=== PATIENT | female | born 1940 | race Caucasian/White ===

== ENCOUNTER 2017-05-30 20:30 | Observation (INO) | payer MEDICARE, OTHER ==
[~2017-05-30] VITALS: Ht 165.1 cm; Wt 72.0 kg
--- NOTE | ~2017-05-30 | DS ---
PATIENT'S NAME: MARINA ALDRIDGE [facility] AGE: 76 Y [address] ROOM: [id number] [place], [place] [address] LOCATION: G3N ADMIT DATE: 05/30/2017 Discharge Summary DISCHARGE DATE: 06/03/2017 FAMILY PHYSICIAN: Yaneth Feldman MD ATTENDING PHYSICIAN: Balwinder Plunkett DISCHARGE DIAGNOSES: 1. Left pubic rami pelvic fracture. 2. Syncope. 3. Adult failure to thrive. 4. Essential hypertension. 5. Coronary artery disease. 6. Elevated pancreatic enzymes, resolved. 7. Depression. 8. Chronic renal impairment. HOSPITAL COURSE: Please refer to admitting history and physical as dictated by Dr. Pérez. Briefly, the patient was admitted to [facility], where she was found to have a left pubic rami fracture. Dr. Bob was consulted and did see the patient. He felt as though the hip was in good position as she could mobilize as tolerated and try to avoid falls in the future. No surgical intervention was needed. Serum protein electrophoresis was ordered and is currently pending at the time of discharge. Tylenol and [place] were used for pain control, which did seem to control the pain. She was noted to have elevated pancreatic enzymes at an outside facility. However, lipase was normal. She had no clinical evidence of pancreatitis. She was continued on her aspirin and statin for coronary artery disease. Due to her adult failure to thrive, SPEP was ordered, currently pending. There was a suspicion that her psychosocial issues also played a part. She had recently been started on Lexapro. We will continue Lexapro and it can be titrated as needed by her primary care physician. Due to the patient's history of syncope, MRI was performed of the brain which showed mild periventricular small vessel ischemic changes without evidence of acute cortical ischemia or hemorrhage. She was monitored on telemetry, which was stable throughout her stay. Her blood pressure systolically did run 100s to 140s with a pulse 50s to 70s primarily. We did go ahead and stop her Bystolic and lisinopril. We will continue her Norvasc 2.5 mg at bedtime. She should check her blood pressures twice daily and take those to primary care followup. Physical Therapy and Occupational Therapy were consulted. It was recommended that she continue use of her walker and fall precautions. Home healthcare, senior care, PT, and OT will follow when discharged. On the day of discharge, the patient was up ambulatory with a walker. Her vital signs were stable. Pain was controlled with [place]. It was felt as though she was safe to be discharged with her daughter and home healthcare. PATIENT'S NAME: MARINA ALDRIDGE [facility] AGE: 76 Y [address] ROOM: [place] [address] LOCATION: [facility] ADMIT DATE: 05/30/2017 Discharge Summary DISCHARGE DATE: 06/03/2017 FAMILY PHYSICIAN: Yaneth Feldman MD ATTENDING PHYSICIAN: Balwinder Plunkett LABORATORY DATA: Sodium 133 on admit, 135 prior to discharge; potassium 3.9- 4.4; fasting glucose 97; BUN 20 on admit, 26 prior to discharge; creatinine 1.1 on admit, 1.0 prior to discharge; albumin 3.2; alkaline phosphatase 103; AST 14; ALT 18; phos 3.9; GFR 50 on admit, 56 prior to discharge; lipase 391; CPK 40; CK-MB 0.7. Troponin less than 0.040. ProBNP 158. CRP less than 0.29. Vitamin B12, 295. TSH 3.280. WBC 7.7, hemoglobin 11.1, hematocrit 33.8, platelets 252. Serum protein electrophoresis, currently pending. ESR 18. Vitamin D level pending. RADIOLOGY REPORTS: MRI of the brain: Please refer to hospital course. DISCHARGE INSTRUCTIONS: The patient will be discharged to home with family. Diet: As tolerated. Activity: As tolerated with walker. Followup: Followup appointment with Dr. Feldman with CBC and BMP in 3 days. Check blood pressures twice daily. Call MD if systolic blood pressure is less than 100 or greater than 180. Record blood pressures and take to physician appointment. No driving until cleared by MD. DISCHARGE MEDICATIONS: 1. Norvasc 2.5 mg p.o. daily at h.s. 2. Aspirin 81 mg p.o. daily. 3. Lipitor 40 mg p.o. q.h.s. 4. Vitamin D3, 2000 units p.o. daily. 5. Ocuvite 1 tablet p.o. daily. 6. Colace 100 mg p.o. twice daily. 7. Lexapro 10 mg p.o. daily. 8. Feosol 325 mg p.o. daily. 9. Protonix 40 mg p.o. daily. 10. Restoril 15 mg p.o. q.h.s. 11. Tylenol 1000 mg p.o. every 8 hours as needed for pain. Tylenol dose should not exceed 4000 mg per day. 12. Mag oxide 400 mg p.o. twice daily. 13. MiraLAX 17 g p.o. daily p.r.n. constipation. 14. Bangor 5/325 one tablet p.o. q.4 hours as needed for pain. Thank you for allowing us to participate in the care of this patient as she has been hospitalized at [facility]. PATIENT'S NAME: [facility] AGE: 76 Y [address] ROOM: [place] [address] LOCATION: [facility] ADMIT DATE: 05/30/2017 Discharge Summary DISCHARGE DATE: 06/03/2017 FAMILY PHYSICIAN: Yaneth Feldman MD ATTENDING PHYSICIAN: Balwinder Plunkett SWETA TRUJILLO APRN FOR MD JENNIFER BROWN/adamal /[id number] d: 06/04/17 0144 t: 06/09/17 1617, DISCHARGE SUMMARY
--- NOTE | ~2017-05-30 | CON ---
PATIENT'S NAME: MARINA ALDRIDGE [facility] AGE: 76 Y [address] ROOM: [address] [address] LOCATION: [facility] ADMIT DATE: 05/30/2017 Consultation DISCHARGE DATE: FAMILY PHYSICIAN: Yaneth Feldman MD ATTENDING PHYSICIAN: STEFANIA ALLEN DATE OF CONSULTATION: 05/31/2017 TIME: 2 p.m. HISTORY OF PRESENT ILLNESS: Ms. Aldridge is a 76-year-old white female 10 days status post a trip and fall at home. She landed on her left knee. Initially, was evaluated at the [facility]. Had x-rays of her pelvis and her knee which showed no fracture. Had a CT scan of her pelvis and chest in which she had left-sided rib fractures. She has had persisting left hip pain which is improving. CT scan yesterday in [place] demonstrated a pelvic fracture about her left total hip. Also is being treated and worked up for possible pancreatitis. She was transferred to [facility] for evaluation and treatment. She reports that her left total hip was done by Dr. Estrella in [place] in 2014. Overall, has done well. Had no infections or complications after surgery and had been walking without pain. MEDICATIONS: See list. ALLERGIES: PENICILLIN, KEFZOL, CEFTRIAXONE, CEFUROXIME, AND LEVAQUIN. PAST MEDICAL HISTORY: Osteoporosis, takes vitamin D; coronary artery disease, required stenting. SOCIAL HISTORY: She quit smoking in the past. Does not drink alcohol. No drug abuse. REVIEW OF SYSTEMS: As above. FAMILY MEDICAL HISTORY: Remarkable for coronary artery disease. PERSONAL AND SOCIAL HISTORY: Lives with her in [place]. PATIENT'S NAME: MARINA ALDRIDGE [facility] AGE: 76 Y [address] ROOM: [address] [address] LOCATION: [facility] ADMIT DATE: 05/30/2017 Consultation DISCHARGE DATE: FAMILY PHYSICIAN: Yaneth Feldman MD ATTENDING PHYSICIAN: STEFANIA ALLEN PHYSICAL EXAMINATION: GENERAL: A white female, in no distress. HEENT: Hears and sees. Pharynx clear. NECK: Nontender. BACK: Thoracic spine nontender. Low back nontender. HEART: Pulse rate is regular. LUNGS: Left-sided chest is tender, but able to take in a deep breath. ABDOMEN: Soft and nontender. PELVIC: There is bruising about the left hip. Pelvic ring is stable. Marked tenderness over the left superior pubic rami. No tenderness of the SI joints. No tenderness over either greater trochanter. Can move the hips without pain. NEUROLOGIC: Motor strength 5/5 both lower extremities. Sensation is intact. Nerve tension testing: Bowstring test and straight leg raise negative. VASCULAR: No calf pain. INTEGUMENT: Bruising is noted. Also, at the left knee, there is a scab over the abrasion which is healing without surrounding erythema or purulence. DIAGNOSTIC DATA: X-rays of the left hip from May 22, 2017, shows a total hip in place without apparent fracture. No loosening. Components in good position. X-rays of the pelvis from May 30, 2017: No apparent fracture. Total hip in good position. CT scan from May 30, 2017, at [place], [place]: Well-fixed, well-positioned total hip acetabulum and femoral stem. Probable nondisplaced fracture at the anterior column of the left acetabulum, base of the superior pubic rami. Minimal arthritis of the right hip. Significant degeneration of the L5-S1 disk. ASSESSMENT AND PLAN: The patient with osteoporosis, pathologic nondisplaced fracture of the left pelvis. Hip is in good position. A serum protein electrophoresis is pending. Would mobilize as tolerates. Needs to avoid falls to prevent additional fractures in the future and continue treating her osteoporosis with her family physician. SANJANA ESCALERA MD DPM/adamal /[id number] d: 05/31/179 t: 06/01/17 1218, CONSULTATION REPORT
--- NOTE | ~2017-05-30 | HP ---
PATIENT'S NAME: [facility] AGE: 76 Y [address] ROOM: [place] [address] LOCATION: [facility] ADMIT DATE: 05/30/2017 History & Physical DISCHARGE DATE: FAMILY PHYSICIAN: Yaneth Feldman MD ATTENDING PHYSICIAN: STEFANIA ALLEN DATE OF SERVICE: CHIEF COMPLAINT: Fall. HISTORY OF PRESENT ILLNESS: This 76-year-old lady with a past medical history of hypertension, coronary artery disease with a stent placed in one the coronary vessels 2 years ago, was at home and tripped and had a fall about 1 week ago. She presented to the hospital. Over there, an initial skeletal x-ray was done, which did not reveal any fractures. She was found to . She was discharged from the hospital and today she got a visit from one of the PAs over there, who ordered a CAT scan, which did show pelvic fracture. She was transferred here for further medical care. On my encounter, she is lying in bed, alert and oriented, not complaining of any pain. She said she hurts in her left hip when she walks. She does not complain of any chest pain, any shortness of breath, any headache, any fever, any chills, any trouble swallowing, any burning on urination, or any abdominal pain. REVIEW OF SYSTEMS: All other systems reviewed were negative, except what is mentioned in the HPI. ALLERGIES: THE PATIENT HAS MANY DRUG ALLERGIES INCLUDING PENICILLIN, CEFTRIAXONE, CEFUROXIME, AND LEVAQUIN. PAST MEDICAL HISTORY: Hypertension and coronary artery disease. MEDICATIONS: Being reconciled right now. SOCIAL HISTORY: Quit smoking 3 years ago. FAMILY HISTORY: No significant history of premature coronary artery disease in the family. PHYSICAL EXAMINATION: PATIENT'S NAME: [facility] AGE: 76 Y [address] ROOM: [place] [address] LOCATION: [facility] ADMIT DATE: 05/30/2017 History & Physical DISCHARGE DATE: FAMILY PHYSICIAN: Yaneth Feldman MD ATTENDING PHYSICIAN: STEFANIA ALLEN VITAL SIGNS: 145/68, 53, 16, saturating 95% on room air. GENERAL: No acute distress. Alert and oriented x3. HEENT: Head atraumatic and normocephalic. Eyes: Nonicteric. No pallor. Oropharynx: Moist mucous membranes. CARDIOVASCULAR: S1, S2. No murmurs, gallops, or rubs. LUNGS: Clear to auscultation bilaterally. ABDOMEN: Soft, nontender, and nondistended. Bowel sounds present. EXTREMITIES: No clubbing, cyanosis, or edema. MUSCULOSKELETAL: No tenderness noted in bilateral trochanteric region. ENDOCRINE: No thyromegaly or lymphedema noted. NEUROLOGIC: Cranial nerves 2 through 12 intact. No motor or sensory deficits. SKIN: No blemishes noted. Left pretibial bruise noted. LABORATORY DATA: Lab work pending at this point. CAT scan has been done today, and we will review and obtain the results of the report. ASSESSMENT AND PLAN: 1. Pelvic fracture. 2. Hypertension. 3. Coronary artery disease. We are going to admit this lady for observation and pain control. We will have Orthopedic consultation in the morning. We will review the results of the CAT scan. Lab work will be done; CBC, CMP, and lipase as well. We will obtain the records from the previous hospitalization to trend the lab work. Continue home medications of amlodipine, lisinopril, and aspirin 81. Full code. Fall precautions. SCDs for now, can be oral prophylaxis from tomorrow morning. MD GLADIS BAIG/pancho /[id number] D: [id number] T: [id number] HISTORY & PHYSICAL
--- NOTE | 2017-05-30 23:42 | NUR ---
Patient stated that last week she was walking with her and tripped and fell on a cement slab. She crawled into her house and laid on the couch for a couple of hours. patient stated she waited 3 hours before telling family that she had fallen. A family friend saw her and took her to the [facility] ER. The patient was admitted to the hospital there from last Friday and went home on Friday. Patient also dislocated 2 of her left ribs and stated that she had pancreatitis. Today the patient missed an appointment so Yaneth WILL came and saw her to draw labs that she missed and assessed her and sent her to the hospital to get a CT and it showed a pelvic fracture. They then had her come to [facility] and they came by private car.
[2017-05-30] MEDS ORDERED: FEOSOL325 MG PO (23:54)
[2017-05-30] MEDS ORDERED: COLACE100 MG PO (23:54)
[2017-05-30] MEDS ORDERED: OCUVITE EYE +1 EACH PO (23:58)
[2017-05-30] MEDS ORDERED: ACETAMINOPHEN325 MG PO (23:59)
[2017-05-31] MEDS ORDERED: ASPIRIN LO-DOSE81 MG PO
[2017-05-31] MEDS ORDERED: VITAMIN D-32000 UNI1 PO (00:01)
[2017-05-31] MEDS ORDERED: NORVASC2.5 MG PO (00:02)
[2017-05-31] MEDS ORDERED: PRINIVIL (ZESTR20 MG PO (00:02)
[2017-05-31] MEDS ORDERED: MAG-OX-400(241400 MG PO (00:03)
[2017-05-31 00:05] LABS: BASOPHIL % 0.5 %; EOSINOPHIL # 0.1 K/uL (0.0-0.5); EOSINOPHIL % 0.7 %; HEMATOCRIT 34.8 % (33.0-46.0); HEMOGLOBIN 11.6 g/dL (10.0-15.0); IMMATURE GRANULOCYTE % 0.3 %; LYMPHOCYTE % 22.9 %; MCH 28.1 pg (27.0-34.0); MCHC 33.3 gm/dL (32.0-36.5); MCV 84.3 fl (83.0-98.0); MONOCYTE # 0.9 K/uL (0.0-1.0); MONOCYTE % 10.5 %; MPV 8.9 fl (9.4-12.4); NEUTROPHIL # (ANC) 5.7 K/uL (1.8-7.8); NEUTROPHIL % 65.1 %; NRBC % 0 /100WBC (0-0.00); PLATELET COUNT 243 K/uL (150-450); RBC 4.13 M/uL (3.50-5.50); RDW-CV 13.8 % (11.9-14.6); WBC 8.7 K/uL (4.0-11.0)
[2017-05-31] MEDS ORDERED: REGLAN5 MG PO (00:05)
[2017-05-31] MEDS ORDERED: PROTONIX40 MG PO (00:06)
[2017-05-31] MEDS ORDERED: LIPITOR40 MG PO (00:07)
[2017-05-31 00:21] LABS: ALBUMIN 3.5 gm/dL (3.5-5.0); ANION GAP 11.9 (10.0-19.0); CALCIUM 9.2 mg/dL (8.5-10.5); CREATININE 1.1 mg/dL (0.5-1.1); POTASSIUM 3.9 mMol/L (3.7-5.1); TOTAL BILIRUBIN 0.6 mg/dL (0.0-1.5); TOTAL PROTEIN 6.7 g/dL (6.0-8.4)
[2017-05-31] MEDS ORDERED: RESTORIL15 MG PO (00:45)
--- NOTE | 2017-05-31 03:50 | NUR ---
Significant Event: Admitted at 2300. Refuses pain medication. CSM WNL. 1 assist with transfers. Voids without difficulty. Bradycardia. Scab to L) knee. Patient states she has 2 left dislocated ribs. Follow up:
--- NOTE | 2017-05-31 15:03 | NUR ---
Significant Event: Pt Aox3. VSS, hypotensive this am and BP meds held. I did get parameters placed for her medications. She is alos bradycardic with rates in 50s. Up SBA, walker and gait belt. Moves steadily. [place] given x 1 for pain. Voids without difficulty and had moderate BM. Dr. Bob says WBAT, she has small fracture that would not require surgical intervention. Bruising to left hip. L knee has healing scab. Follow up: Possible discharge home tomorrow.
[2017-05-31 16:02] LABS: CPK 40 IU/L (21-215)
--- NOTE | 2017-06-01 03:29 | NUR ---
Significant Event: A/O X 3. CSM WNL. PATIENT IS A ONE ASSIST WITH TRANSFERS TO BR WITH GAITBELT AND WALKER, VOIDED X 3. STEADY GAIT, PAIN WITH MOVEMENT. HAD RESTORIL 15MG AT HS AND HAD NORCO TAB ONE AT 2243 FOR PAIN PELVIS AREA. SCAB TO LEFT KNEE INTACT-HEALING, SLIGHT REDNESS AROUND AREA. ON TELEMETRY FOR ENDY HR, NO CALLS. PATIENT IS WBAT. BRUISING TO LET HIP. PARAMETERS TO BP'S. Follow up:
[2017-06-01 04:30] LABS: BASOPHIL # 0.1 K/uL (0.0-0.2); BASOPHIL % 0.6 %; EOSINOPHIL # 0.2 K/uL (0.0-0.5); EOSINOPHIL % 2.1 %; HEMATOCRIT 33.8 % (33.0-46.0); HEMOGLOBIN 11.1 g/dL (10.0-15.0); IMMATURE GRANULOCYTE % 0.5 %; LYMPHOCYTE # 2.5 K/uL (0.8-4.0); LYMPHOCYTE % 32.6 %; MCHC 32.8 gm/dL (32.0-36.5); MCV 85.4 fl (83.0-98.0); MONOCYTE # 0.8 K/uL (0.0-1.0); MONOCYTE % 9.7 %; NEUTROPHIL # (ANC) 4.2 K/uL (1.8-7.8); NEUTROPHIL % 54.5 %; NRBC % 0 /100WBC (0-0.00); PLATELET COUNT 252 K/uL (150-450); RBC 3.96 M/uL (3.50-5.50); RDW-CV 13.9 % (11.9-14.6); WBC 7.7 K/uL (4.0-11.0)
[2017-06-01 04:45] LABS: ALBUMIN 3.2 gm/dL (3.5-5.0); ANION GAP 9.3 (10.0-19.0); CREATININE 1.1 mg/dL (0.5-1.1); PHOSPHORUS 3.9 mg/dL (2.5-4.9); POTASSIUM 4.3 mMol/L (3.7-5.1)
[2017-06-01] MEDS ORDERED: LEXAPRO10 MG PO (15:18)
[2017-06-01] MEDS ORDERED: ZEBETA5 MG PO (15:19)
[2017-06-01] MEDS ORDERED: REQUIP0.5 MG PO (15:19)
--- NOTE | 2017-06-01 17:18 | NUR ---
Significant Event: Pt Aox3. VSS, CSM WNL. [place] for pain. Voiding without difficulty. Up with SBA, walker and gait belt. Possible discharge home tomorrow. Follow up:
--- NOTE | 2017-06-02 03:05 | NUR ---
Significant Event: A/O X 3. CSM WITHIN NORMAL LIMITS. ON TELEMETRY FOR BRADYCARDIA HR 58-62, NO CALLS. UP WITH ONE ASSIST, WALKER,GAITBELT TO BR, VOIDS WITHOUT DIFFICULTY. STEADILY GAIT. PAIN WITH MOVEMENT. HAD NORCO TAB ONE AT 2230 FOR PAIN PELVIS AREA RATING A 6, LATER SLEEPING. TAKES FLUIDS, NO NAUSEA. NO IV ACCESS. INCENTIVE SPIROMETER USAGE 1250. BRUISING TO LEFT HIP, ARM. DRY SCAB AREA TO LEFT ANKLE AREA. POSSIBLE HOME FRIDAY. Follow up:
[2017-06-02 06:20] LABS: ANION GAP 11.4 (10.0-19.0); CALCIUM 9.3 mg/dL (8.5-10.5); POTASSIUM 4.4 mMol/L (3.7-5.1)
--- NOTE | 2017-06-02 10:56 | NUR ---
Significant Event:A/O X 3. Ambulates in the room, 1 assist with gait belt and wheeled walker. Sinus bradycardia, HR 79 this AM. Some PVC's, murmur. SBP 130's. Lungs clear with O2 sats > 90% on room air. Tolerating PO fluids and nutrition. BM today. Voids without problems. Some indigestion later this morning, but resolves with sitting up and soda crackers. Bruising to L) hip and arm. Dry scabbed abrasions to L) knee and L) ankle. Pain resolved with 1 [place], last at 0630. Declines shower for now. Daughter and are supportive at the bedside. Follow up:Placement with - has alzheimers and can not be left alone, patient is 's caregiver.
--- NOTE | 2017-06-02 11:45 | NUR ---
Introduced self/role to patient, daughter Amee and Jamel (who has dementia). Explained OBS vs IPO and that currently it was under review. Explained how this would effect half-way care coverage. If she is OBS they will go home with [facility], no preference on who provided that care. Talked a lot about the care dad was going to need in future. Will followup with them later once status is determined. 1350 Gave daughter contact information for [facility] to assist them with a Medicaid application for long-term plans. Also gave her the number for their local Office to see what dad's option of care would be. 1530 Sandra with UR and myself meet with patient. Went over OBS status and Code 44 and COOL signed by patient. Will work on [facility] and planning to discharge tomorrow around 1300. Face to face placed on the chart and called Dr Renee. 1600 Called [facility] and left a message #[phone].
--- NOTE | 2017-06-03 04:12 | NUR ---
Significant Event: Pt A&Ox3. VS stable, remains on RA. Did have pain control issues earlier in the shift with difficulty with patient finding relief. Gave 1g tylenol with no real relief, did position changes, finally, pt agreed to take 1 [place]. Pt states when taking [place], it gives her indigestion--maybe get something ordered? Up with SBA to bathroom. No IV. On tele. Follow up: CM on case looking for placement for (pt is caregiver) and pt.
--- NOTE | 2017-06-03 11:15 | NUR ---
Followed up with patient on [facility] and gave her the numbers for reach [facility] if needed. P#[phone]. 1315 Orders, face to face, meds faxed to [facility] #[phone]
--- NOTE | 2017-06-03 13:18 | NUR ---
PT MOVED TO NO RISK W/ INTAKE 75-100%. WILL CONT ENSURE BID TO MAINTAIN LEAN MASS. F/U IN 7-10 DAYS.
[2017-06-03] MEDS ORDERED: MIRALAX17 GM PO (13:32)
[2017-06-03] MEDS ORDERED: NORCO 7.5-3251 EACH PO (13:33)
--- NOTE | 2017-06-03 14:13 | NUR ---
DISMISSAL EDUCATION REVIEWED WITH PT AND DAUGHTER. INCLUDED KEEPING BP LOG, HOLDING BP MEDICATIONS, DC'D MEDICATIONS, F/U APPTS, ACTIVITY RESTRICTIONS. DAUGHTER AND PT BOTH VERBALIZED UNDERSTANDING. PT HAD NO IV ACCESS. PT AND BELONGINGS WERE TAKEN TO FRONT LOBBY IN WHEELCHAIR BY DIRECTOR OF LABOR AND DELIVERY AT 1413
== END 2017-06-03 14:00 | disposition home health service (06) ==
LOC: G3N 22:45
PROVIDERS: Family Medicine; ADMIT Internal Medicine
DX: M80.852A Other osteoporosis with current pathological fracture, left femur, initial encounter for fracture (principal); I10 Essential (primary) hypertension; I25.10 Atherosclerotic heart disease of native coronary artery without angina pectoris; F32.9 Major depressive disorder, single episode, unspecified; N28.9 Disorder of kidney and ureter, unspecified; R62.7 Adult failure to thrive; R55 Syncope and collapse; Z88.0 Allergy status to penicillin; Z88.1 Allergy status to other antibiotic agents; Z87.891 Personal history of nicotine dependence; Z95.5 Presence of coronary angioplasty implant and graft; Z79.899 Other long term (current) drug therapy; W01.0XXA Fall on same level from slipping, tripping and stumbling without subsequent striking against object, initial encounter
CPT/HCPCS: G0378; G0379; G8978; G8979; G8980; G8981; G8982; G8983; J1650